=== PATIENT | female | born 1985 | race Caucasian/White ===

== ENCOUNTER 2017-09-14 13:21 | Emergency (ER) | payer SELFPAY ==
[~2017-09-14] VITALS: Ht 172.7 cm; Wt 70.0 kg
[2017-09-14 13:25] VITALS: BP 136/68; PULSE 91; RESP 16; TEMP 98.4; O2SAT 98
[2017-09-14] MEDS ORDERED: CLIN150C14 PO (17:57)
[2017-09-14] MEDS ORDERED: IBUP1TAB7 PO (17:57)
[2017-09-14] MEDS ORDERED: PERI0.126 SWISH-SPIT (17:57)
--- NOTE | 2017-09-14 17:57 | PD ---
HPI Chief Complaint: Oral / Dental Pain or Problem Time Seen by Provider: 17:49 Travel History International Travel<30 days: No Contact w/Intl Traveler<30days: No Traveled to known affect area: No History of Present Illness HPI 32-year-old female presents emergency department for evaluation. Patient has dentures. She noticed over the last month or 2 that she had a spot where her maxillary left incisor was where she could see the bone. She feels like this is gotten bigger. She reports mild pain at the site. She states she has not gotten back in touch with her surgeon since noticing this. Denies any new injury. No fever or chills. No other symptoms to report. PFSH Past Medical History Medical History: Denies Significant Hx Social History Tobacco Use: No Allergies-Medications (Allergen,Severity, Reaction): Coded Allergies: fluoxetine (Verified Allergy, Unknown, 09/14/17) Reported Meds & Prescriptions Reported Meds & Active Scripts Active Ibuprofen 800 Mg Tab 800 Mg PO Q8H PRN Clindamycin (Clindamycin HCl) 150 Mg Cap 300 Mg PO Q6H 10 Days Peridex Liq (Chlorhexidine Gluconate (Mouth) Liq) 0.12% Soln 15 Ml SWISH-SPIT BID Review of Systems Except as stated in HPI: all other systems reviewed are Neg Physical Exam Narrative GENERAL: Well-nourished, well-developed female patient in no acute distress SKIN: Focused skin assessment warm/dry. HEAD: Normocephalic. No erythema or edema EYES: No scleral icterus. No injection or drainage. DENTAL:patient has no teeth. They have all been extracted. Where the left maxillary incisor would be, the gingiva is receded and you can visualize bony substance. No significant erythema or edema. No appreciable abscess. No malocclusion. NECK: Supple, trachea midline. No JVD or lymphadenopathy. CARDIOVASCULAR: Regular rate and rhythm without murmurs, gallops, or rubs. RESPIRATORY: Breath sounds equal bilaterally. No accessory muscle use. MUSCULOSKELETAL: No cyanosis, or edema. BACK: Nontender without obvious deformity. No CVA tenderness. Data Data Last Documented VS Vital Signs Date Time Temp Pulse Resp B/P (MAP) Pulse Ox O2 Delivery O2 Flow Rate FiO2 09/14/17 13:25 98.4 91 16 136/68 (90) 98 Orders Orders Ed Discharge Order (09/14/17 17:57) MDM Medical Decision Making Medical Screen Exam Complete: Yes Emergency Medical Condition: Yes Medical Record Reviewed: Yes Differential Diagnosis Gum recession versus gingivitis versus foreign body versus periodontal disease Narrative Course 32-year-old female presents emergency department for evaluation. Patient has had all of her teeth extracted. Where the maxillary left incisor would be, it appears that there is gingival recession quite severe in the area. I have encouraged her to follow-up with the dental specialist who extracted her teeth. She is encouraged to return immediately with any acute worsening symptoms. Diagnosis Primary Impression: Localized gingival recession, severe Additional Impression: Gingivitis Referrals: Dentist Primary Care Physician Patient Instructions: General Instructions, Gingivitis (ED) Additional Instructions: Follow-up with a primary care provider Seek dental evaluation Return immediately with any acute worsening symptoms Med/Other Pt SpecificInfo: Prescription(s) given Scripts Ibuprofen (Ibuprofen) 800 Mg Tab 800 MG PO Q8H Y for Pain/Inflammation, #30 TAB 0 Refills Prov: Nesha Sevilla 09/14/17 Clindamycin (Clindamycin) 150 Mg Cap 300 MG PO Q6H for Infection for 10 Days, #80 CAP 0 Refills Prov: Nesha Sevilla 09/14/17 Chlorhexidine Gluconate (Mouth) Liq (Peridex Liq) 0.12% Soln 15 ML SWISH-SPIT BID, #473 ML 0 Refills Prov: Nesha Sevilla 09/14/17 Disposition: 01 DISCHARGE HOME Condition: Stable Nesha Sevilla Sep 14, 2017 17:57
== END 2017-09-14 19:00 | disposition home or self-care (01) ==
LOC: NEPD 13:21
DX: K06.0 Gingival recession (principal); K05.10 Chronic gingivitis, plaque induced
CPT/HCPCS: 99283